=== PATIENT | male | born 1990 | race Caucasian/White ===

== ENCOUNTER 2017-11-02 20:08 | Emergency (ER) | payer SELFPAY ==
[~2017-11-02] VITALS: Ht 182.9 cm; Wt 94.2 kg
[~2017-11-02 20:08] MED LIST: KEFLEX500 MG PO; MOTRIN800 MG PO
[2017-11-02 22:34] LABS: HEMATOCRIT 43.9 % (38.0-50.0); MCH 29.1 PG (29.0-34.0); MCHC 34.2 G/DL (30.0-36.0); MCV 85.1 FL (86-99); MEAN PLAT.VOLUME 10.1 uM^3 (9.0-12.4); PLATELET COUNT 303 K/uL (156-360); RBC DIS.WIDTH-CV 12.4 % (11.8-14.6); RBC DIS.WIDTH-SD 38.2 % (39-53); RED BLOOD COUNT 5.16 M/uL (4.00-5.50); WHITE BLOOD COUNT 7.7 K/uL (4.1-10.2)
[2017-11-02 22:57] LABS: CHLORIDE 103 mEq/L (99-109); SODIUM 136 mEq/L (136-147)
[2017-11-02 22:59] LABS: GLUCOSE 91 mg/dL (70-99)
[2017-11-02 23:00] LABS: ANION GAP 8 MEQ/L (2-14); TROP-I INTERPRETATION NEGATIVE; TROPONIN-I < 0.01 ng/mL (0.0-0.30)
[2017-11-02 23:01] LABS: TOTAL BILIRUBIN 0.4 mg/dL (0.0-1.0)
[2017-11-02 23:02] LABS: ALKALINE PHOSPHATASE 60 IU/L (3-129)
[2017-11-02 23:03] LABS: GFR ESTIMATE (CALCULATED) > 59 mL/min/ (58.99-99999)
[2017-11-02 23:04] LABS: UREA NITROGEN (BUN) 16 mg/dL (9-23)
[2017-11-02 23:18] VITALS: BP 115/85
== END 2017-11-02 23:18 | disposition home or self-care (01) ==
LOC: EME 20:08
PROVIDERS: Physician Assistant
DX: M94.0 Chondrocostal junction syndrome [Tietze] (principal); R20.2 Paresthesia of skin; R20.0 Anesthesia of skin; Z87.891 Personal history of nicotine dependence
CPT/HCPCS: 71020; 80053; 84484; 85027; 93005; 99281; 99284